=== PATIENT | female | born 1950 | race Caucasian/White ===

== ENCOUNTER → 2017-06-24 11:52 | Outpatient (CLI) | payer MEDICARE, SELFPAY | PROVIDERS: PCP Family Medicine; Visit Provider Orthopaedic Surgery | DX: Z01.810 Encounter for preprocedural cardiovascular examination (principal) | CPT/HCPCS: 93005 ==

== ENCOUNTER → 2017-07-09 09:50 | Outpatient (CLI) | payer MEDICARE, SELFPAY ==
--- NOTE | 2017-07-09 09:57 | XR_ITS ---
XR ankle RT min 3V HISTORY: Follow-up fracture ITS.REASON: 2 WK POST OP ORIF RT ANKLE ORDERING PHYSICIAN: Taj Ozuna MD PATIENT AGE: 67 years COMPARISON: 07/05/2017 FINDINGS: Study is obtained through cast. Medial tibial bone plate and lateral malleolus screw remains in place. Fracture lines of are secured by the overlying cast. There remains good alignment. IMPRESSION: No change in alignment status post ORIF bimalleolar fracture
== END ==
PROVIDERS: PCP Family Medicine; Visit Provider Orthopaedic Surgery
DX: S82.891A Other fracture of right lower leg, initial encounter for closed fracture (principal)
CPT/HCPCS: 73610

== ENCOUNTER → 2017-08-05 10:13 | Outpatient (CLI) | payer MEDICARE, SELFPAY ==
--- NOTE | 2017-08-05 10:18 | XR_ITS ---
XR ankle RT min 3V HISTORY: Follow-up fracture ITS.REASON: ankle fracture ORDERING PHYSICIAN: Taj Ozuna MD PATIENT AGE: 67 years Comparison: 07/09/2017 FINDINGS: The cast has been removed. Medial bone plate along the distal tibia and longitudinal screw within the lateral malleolus fracture once again noted. There is good alignment of fracture fragments with fracture lines are less apparent consistent healing. IMPRESSION: Good alignment status post ORIF distal tib-fib fracture
== END ==
PROVIDERS: PCP Family Medicine; Visit Provider Orthopaedic Surgery
DX: S82.891A Other fracture of right lower leg, initial encounter for closed fracture (principal)
CPT/HCPCS: 73610

== ENCOUNTER 2017-08-05 12:01 | Outpatient (RCR) | payer MEDICARE, SELFPAY | END 2017-08-05 14:14 | disposition home or self-care (01) | LOC: PT 12:01 | PROVIDERS: PCP Family Medicine; Visit Provider Orthopaedic Surgery | DX: S82.899A Other fracture of unspecified lower leg, initial encounter for closed fracture (principal) | CPT/HCPCS: 97760 ==

== ENCOUNTER → 2017-09-16 11:53 | Outpatient (CLI) | payer MEDICARE, SELFPAY ==
--- NOTE | 2017-09-16 11:55 | XR_ITS ---
XR ankle RT min 3V HISTORY: Follow-up surgery/fracture ITS.REASON: S/P RT ANKLE ORIF ORDERING PHYSICIAN: Taj Ozuna MD PATIENT AGE: 67 years Comparison: 08/05/2017 FINDINGS: Status post ORIF with a bone plate along the distal tibia with multiple screws and a longitudinally placed screw in the distal fibula. There is good alignment. Small area of sclerosis is present at the distal tibia nonspecific and not significantly changed. IMPRESSION: Good alignment status post ORIF bimalleolar fracture Nonspecific transverse band of sclerosis involving the distal tibia at the metaphyseal region. This is of questionable clinical significance but is more prominent than when compared to 08/05/2017. Osteonecrosis is a consideration.
== END ==
PROVIDERS: PCP Family Medicine; Visit Provider Orthopaedic Surgery
DX: Z96.7 Presence of other bone and tendon implants (principal); Z87.81 Personal history of (healed) traumatic fracture
CPT/HCPCS: 73610

== ENCOUNTER → 2020-11-29 12:43 | Outpatient (CLI) | payer MEDICARE, SELFPAY | PROVIDERS: PCP Family Medicine; Visit Provider Nurse Practitioner | DX: Z20.822 Contact with and (suspected) exposure to COVID-19 (principal); U07.1 COVID-19 | CPT/HCPCS: C9803; U0003; U0005 ==